=== PATIENT | female | born 1975 | race Caucasian/White ===

== ENCOUNTER 2017-07-09 19:13 | Emergency (ER) | payer BC, OTHER ==
[2017-07-09 19:24] VITALS: BP 98/72
[2017-07-09] MEDS ORDERED: Promethazine 25 MG/ML SDV IM ONE (19:45)
[2017-07-09] MEDS ORDERED: diphenhydrAMINE 50 MG/ML SDV IM ONE (19:45)
[2017-07-09] MEDS ORDERED: Ketorolac 60 MG/2 ML SDV IM ONE (19:45)
--- NOTE | 2017-07-09 19:50 | EDM.PDOC ---
ED HPI GENERAL MEDICAL PROBLEM - General Chief Complaint: Headache Stated Complaint: HEADACHE Time Seen by Provider: 07/09/17 19:29 Source of Information: Reports: Patient History Limitations: Reports: No Limitations - History of Present Illness INITIAL COMMENTS - FREE TEXT/NARRATIVE: 42-year-old female presents for evaluation and treatment of a "migraine" headache. Patient reports has been present for several days. States the headache has been intermittent for the last few days, constant today. Reports was previously located in the frontal and temporal areas but is now located more the occipital area. She did take some Tylenol and Motrin without any symptom relief. Denies any associated symptoms of fevers, cough, nausea, vomiting, vision changes, lightheadedness, dizziness, syncope, photophobia or phonophobia. Currently rates the headache as a 7 out of 10. Reports she does not get frequent migraine headaches. Patient reports in [place] in 2013 she had a severe migraine. She had a complete workup done but no etiology for her migraine was found. She did not receive a flu vaccine this season. Patient reports that she was still recently with a "GI bug ". Had vomiting and abdominal pain earlier this week. She reports her symptoms have subsided. She was seen by her primary care provider. Instructed to come to the ER if she had worsening or changing symptoms. Headache Pain Score (Numeric/FACES): 7 - Related Data Allergies Allergy/AdvReac Type Severity Reaction Status Date / Time Penicillins Allergy Swelling Verified 07/09/17 19:24 Home Meds: Home Meds . 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 Denies : Fever HEENT: Denies: Ear Pain, Throat Swelling, Vision Change Respiratory: Denies: Cough GI/Abdominal: Denies: Abdominal Pain, Nausea, Vomiting Neurological: Reports: Headache. Denies: Dizziness, Syncope - Physical Exam Exam: See Below Exam Limited By: No Limitations General Appearance: Alert, WD/WN, No Apparent Distress (laughing and joking with and son) Eye Exam: Bilateral Eye: EOMI, Normal Inspection, PERRL Ears: Normal External Exam, Normal Canal, Hearing Grossly Normal, Normal TMs Nose: Normal Inspection Throat/Mouth: Normal Inspection, Normal Lips, Normal Oropharynx, Normal Voice, No Airway Compromise Head Exam: Atraumatic, Normocephalic Neck: Normal Inspection, Supple, Non-Tender Respiratory/Chest: No Respiratory Distress, Lungs Clear, Normal Breath Sounds Cardiovascular: Normal Peripheral Pulses, Regular Rate, Rhythm, No Murmur Neuro Exam (Abbreviated): Alert, Oriented, CN II-XII Intact, Normal Cognition, Normal Gait, Other (sack keeper strength 5/5 bilaterally) Psychiatric: Normal Affect, Normal Mood Skin Exam: Warm, Dry, Normal Color Course - Vital Signs Last Recorded V/S: Last Vital Signs Temp 36.4 C 07/09/17 19:21 Pulse 65 07/09/17 19:21 Resp 16 07/09/17 19:21 BP 98/72 07/09/17 19:21 Pulse Ox 99 07/09/17 19:21 - Orders/Labs/Meds Meds: Medications Discontinued Medications Generic Name Dose Route Start Last Admin Trade Name Mary PRN Reason Stop Dose Admin Diphenhydramine HCl 25 mg 07/09/17 19:45 07/09/17 20:09 Benadryl IM 07/09/17 19:46 25 mg ONETIME ONE Administration Ketorolac Tromethamine 60 mg 07/09/17 19:45 07/09/17 20:09 Toradol IM 07/09/17 19:46 60 mg ONETIME ONE Administration Promethazine HCl 25 mg 07/09/17 19:45 07/09/17 20:09 Phenergan IM 07/09/17 19:46 25 mg ONETIME ONE Administration - Re-Assessments/Exams Free Text/Narrative Re-Assessment/Exam: 07/09/17 21:23 Patient has been sleeping. Nursing staff came in informed me that she woke and her headache was resolved. I checked on the patient states that her headache is gone. Feels comfortable going home. Discharge instructions as documented. Departure - Departure Time of Disposition: 21:30 Disposition: Home, Self-Care 01 Clinical Impression: Headache - Discharge Information Instructions: General Headache Without Cause Referrals: Amanda Siddiqui PA-C [Primary Care Provider] - Forms: ED Department Discharge, ED Return to Work/School Form Additional Instructions: Follow-up with your primary care provider as needed for further headache management. make sure you're drinking plenty of fluids. Go home and rest in a dark quiet room tonight. note given for work. Take [id number] Tylenol Motrin as needed for additional relief. Please return to the ER if your symptoms change or worsen.
== END 2017-07-09 21:30 | disposition home or self-care (01) ==
LOC: JD.ED 19:13
DX: R51 Headache (principal); Z88.0 Allergy status to penicillin
CPT/HCPCS: 96372; 99283; J1200; J1885; J2550; 99282